=== PATIENT | male | born 1935 | race Caucasian/White ===

== ENCOUNTER 2017-08-15 09:17 | Emergency (ER) | payer MEDICARE ==
[2017-08-15 09:51] LABS: #Eosinphils 0.2 thou/uL (0.0-0.7); #Lymphocytes 2.5 thou/uL (1.20-3.40); #Monocytes 0.6 thou/uL (0.11-0.59); #Neutrophils 3.8 thou/uL (1.40-6.50); %Basophils 0.3 % (0.0-1.0); %Eosinophils 3.1 % (0.0-10.0); %Lymphocytes 34.7 % (21.0-51.0); %Monocytes 8.3 % (0.0-10.0); Hematocrit 45.4 % (42.0-52.0); Mean Platelet Volume 7.4 fL (7.4-10.4); Red Blood Cell (RBC) Count 4.88 mill/uL (4.70-6.10); White Blood Cell (WBC) Count 7.1 thou/uL (4.8-10.8)
[2017-08-15 10:14] LABS: ALT (SGPT) 15 U/L (8-55); AST (SGOT) 17 U/L (5-34); Alkaline Phosphatase 72 U/L (40-150); Anion Gap 13 mmol/L (10-20); BUN (Urea Nitrogen) 15 mg/dL (8.4-25.7); Bilirubin, Total 0.6 mg/dL (0.2-1.2); Calc. Creatinine Clearance 0 mL/min (70-130); Calcium 9.7 mg/dL (7.8-10.44); Carbon Dioxide 28 mmol/L (23-31); Chloride 106 mmol/L (98-107); Estimated GFR-MDRD 60; Globulin 2.5 g/dL (2.4-3.5); Protein, Total 6.5 g/dL (5.8-8.1)
[2017-08-15 10:58] LABS: Bilirubin Negative (Negative); Blood, Urine Negative (Negative); Glucose, Urine (Dipstick) Negative (Negative); Ketone, Urine Negative (Negative); Nitrite Negative (Negative); Protein, Urine (Dipstick) Negative (Neg-Trace); Urobilinogen 0.2 mg/dL (0.2-1.0)
== END 2017-08-15 10:35 | disposition home or self-care (01) ==
LOC: ERS 09:17
DX: R42 Dizziness and giddiness (principal); E11.9 Type 2 diabetes mellitus without complications; E78.5 Hyperlipidemia, unspecified; Z79.82 Long term (current) use of aspirin; Z79.899 Other long term (current) drug therapy
CPT/HCPCS: 36415; 80053; 81003; 85025; 93005

== ENCOUNTER 2017-09-15 23:45 | Emergency (ER) | payer MEDICARE | END 2017-09-16 01:00 | disposition home or self-care (01) | LOC: ERS 23:45 | DX: I10 Essential (primary) hypertension (principal); G47.30 Sleep apnea, unspecified; E11.9 Type 2 diabetes mellitus without complications; E78.5 Hyperlipidemia, unspecified; Z79.82 Long term (current) use of aspirin; Z79.899 Other long term (current) drug therapy; Z79.4 Long term (current) use of insulin ==

== ENCOUNTER 2019-05-28 15:49 | Outpatient (CLI) | payer MEDICARE ==
--- NOTE | 2019-05-28 16:12 | ULT ---
EXAM: Left lower extremity venous duplex: Deep veins evaluated with color Doppler, spectral analysis, and compression. INDICATIONS: Left thrombophlebitis. FINDINGS: Deep veins interrogated include common femoral vein, femoral vein, popliteal vein, and post erior tibial vein. These veins show normal compression and blood flow. No evidence of DVT. IMPRESSION: Negative Left venous duplex exam.
== END 2019-05-28 15:50 | disposition home or self-care (01) ==
LOC: ULT 15:49
PROVIDERS: ATTEND Internal Medicine
DX: I80.3 Phlebitis and thrombophlebitis of lower extremities, unspecified (principal); R60.0 Localized edema

== ENCOUNTER 2019-07-23 13:47 | Outpatient (CLI) | payer MEDICARE ==
--- NOTE | 2019-07-23 14:21 | RAD ---
EXAM: 7 views of the cervical spine HISTORY: Chronic neck pain for years radiating down his right shoulder COMPARISON: None FINDINGS: AP, lateral, oblique, flexion/extension, and open mouth odontoid views of the cervical spin e shows normal height and alignment of the vertebral bodies and intervertebral discs without fracture or subluxation. Postsurgical changes are seen in the lower cervical spine with the patient t o be status post anterior fusion of C5-C7. Small osteophytes are seen surrounding the intervertebral discs in the upper cervical spine. No prevertebral soft tissue swelling is seen. Alig nment is unchanged with flexion and extension. IMPRESSION: Mild degenerative changes and postsurgical changes of the cervical spine with unchanged a lignment with bending
--- NOTE | 2019-07-23 14:59 | MRI ---
MRI cervical spine noncontrast HISTORY: Neck pain. Bilateral radiculopathy. FINDINGS: Vertebral body heights and alignment are maintained. Cervicothoracic junction is intact. C2-3: Osteophytosis result in moderate stenosis of the left neural foramen. Central canal and right n eural foramen are patent. C3-4: Mild posterior osteophyte/disc complex. Circumferential degenerative changes. Mild stenosis of the central canal. Severe right and moderate left foraminal stenoses. C4-5: Posterior osteophyte/disc complexes mild. Circumferential degenerative changes. Severe stenosis of the central canal without significant compression of the spinal cord. No abnormal signal within the cord. Severe bilateral foraminal stenosis, right greater than left. C6-7: Anterior operative fixation. Central canal is patent. Osteophytosis with mild right and moderat e left foraminal stenoses. C6-7: Anterior operative fixation. Central canal and neural foramina are patent. C7-T1: Mild osteophytosis. Central canal and neural foramina are patent. IMPRESSION: Postoperative and prominent degenerative changes throughout the cervical spine as detaile d above, including bilateral severe foraminal stenoses. Clinical correlation regarding the right C4 and each C5 dermatome is required.
== END 2019-07-23 13:48 | disposition home or self-care (01) ==
LOC: SCSMRI 13:47
PROVIDERS: ATTEND Anesthesiology Pain Medicine
DX: M48.02 Spinal stenosis, cervical region (principal); M47.812 Spondylosis without myelopathy or radiculopathy, cervical region; Z98.890 Other specified postprocedural states
CPT/HCPCS: 72052; 72141

== ENCOUNTER 2019-10-08 14:20 | Outpatient (CLI) | payer MEDICARE ==
--- NOTE | 2019-10-08 15:23 | ULT ---
EXAM: Soft tissue ultrasound of the right leg COMPARISON: None HISTORY: 2 areas of focal edema in the right leg near the ankle TECHNIQUE: Multiplanar grayscale images were obtained in a targeted ultrasound of the areas of focal swelling. FINDINGS: Edema is seen at areas of swelling without focal mass or fluid collection. IMPRESSION: No focal mass or fluid collection. Focal edema is seen at the areas of swelling.
--- NOTE | 2019-10-08 15:32 | ULT ---
VENOUS DOPPLER ULTRASOUND RIGHT LOWER EXTREMITY: 10/08/19 HISTORY: Right leg pain. TECHNIQUE: Crump scale ultrasound with color flow and spectral Doppler imaging of the deep venous system of the r ight lower extremity is performed. FINDINGS: There is good flow compression and augmentation noted in the right common femoral, femoral, deep femo ral, popliteal, posterior tibial and greater saphenous veins. IMPRESSION: No evidence of DVT in the right lower extremity. POS: OFF
== END 2019-10-08 14:21 | disposition home or self-care (01) ==
LOC: ULT 14:20
PROVIDERS: ATTEND Internal Medicine
DX: I80.8 Phlebitis and thrombophlebitis of other sites (principal); D17.9 Benign lipomatous neoplasm, unspecified; M79.89 Other specified soft tissue disorders; R60.0 Localized edema
CPT/HCPCS: 76999

== ENCOUNTER 2019-12-31 09:21 | Outpatient (CLI) | payer MEDICARE ==
--- NOTE | 2019-12-31 10:48 | CT ---
CT CERVICAL SPINE WITHOUT CONTRAST: HISTORY: Previous cervical fusion. Radiculopathy. COMPARISON: Post myelogram cervical spine CT 05/11/2009. FINDINGS: No craniocervical dissociation. Appropriate alignment of the lateral masses of C1 and C2. Intact odon toid process. Appropriate alignment of the facets. Stable fusion changes with transvertebral body screw at C5, C6 a nd C7. Associated anterior fusion plate. No perihardware lucency. C5-C6 and C6-C7 disc prosthesis. Soft tissue neck structures: No mass, lymphadenopathy or hematoma. No prevertebral soft tissue swelli ng. Upper mediastinum and lung apices: No acute abnormality. Central spinal canal: Limited evaluation of the contents of the central spinal canal and neural foramina due to technique. C2-C3: No significant central canal stenosis. Mild bilateral neural foraminal narrowing due to uncove rtebral hypertrophy. C3-C4: No significant central canal stenosis. Mild bilateral neural foraminal narrowing due to uncove rtebral hypertrophy. C4-C5: Broad-based disc-osteophyte complex. Moderate central canal stenosis. Mild bilateral neural fo raminal narrowing due to uncovertebral hypertrophy. C5-C6: Broad-based osteophyte ridge. Mild central canal stenosis. Moderate right and moderate to sofia re left neural foraminal narrowing due to uncovertebral hypertrophy. C6-C7: No significant central canal stenosis or significant neural foraminal narrowing. C7-T1: No significant central canal stenosis. Patent neural foramina. Vertebral bodies: Cervical spine vertebral body height is maintained. No fracture. IMPRESSION: 1. Uncomplicated cervical fusion from C5 through C7. 2. Degenerative changes of the cervical spine as described above. Multilevel significant neural miguelito inal narrowing as described above. Transcribed Date/Time: 12/31/2019 11:04 AM
== END 2019-12-31 09:22 | disposition home or self-care (01) ==
LOC: TBSIIMAG 09:21
PROVIDERS: ATTEND Surgery
DX: M48.02 Spinal stenosis, cervical region (principal); M50.10 Cervical disc disorder with radiculopathy, unspecified cervical region; M47.22 Other spondylosis with radiculopathy, cervical region; Z98.1 Arthrodesis status
CPT/HCPCS: 72125

== ENCOUNTER 2020-01-31 14:57 | Emergency (ER) | payer MEDICARE ==
[2020-01-31 16:12] LABS: #Eosinphils 0.1 thou/uL (0.0-0.7); #Lymphocytes 1.8 thou/uL (1.20-3.40); #Monocytes 0.7 thou/uL (0.11-0.59); #Neutrophils 5.4 thou/uL (1.40-6.50); %Basophils 0.5 % (0.0-1.0); %Eosinophils 0.9 % (0.0-10.0); %Lymphocytes 22.7 % (21.0-51.0); %Monocytes 9.1 % (0.0-10.0); %Neutrophils 66.8 % (42.0-75.0); Mean Corpuscular HGB CONC 33.4 g/dL (32.0-36.0); Mean Corpuscular Hemoglobin 31.1 pg (27.0-31.0); Mean Corpuscular Volume 93.1 fL (78.0-98.0); Mean Platelet Volume 7.7 fL (7.4-10.4); Platelet Count 268 thou/uL (130-400); RBC Distribution Width 11.9 % (11.5-14.5); Red Blood Cell (RBC) Count 4.49 mill/uL (4.70-6.10); White Blood Cell (WBC) Count 8.1 thou/uL (4.8-10.8)
[2020-01-31] MEDS ORDERED: Acetaminophen 500 MG TAB ONE (16:24)
--- NOTE | 2020-01-31 16:27 | CT ---
HEAD CT WITHOUT CONTRAST: 01/31/20 HISTORY: Hypertension with headaches. TECHNIQUE: Axial CT imaging at 5 mm intervals from vertex through skull base without contrast. FINDINGS: The visualized paranasal sinuses and mastoid air cells are well aerated. No displaced calvarial fract ure. No intracranial hemorrhage, midline shift, mass effect or ventricular enlargement. IMPRESSION: No acute findings. POS: [facility]
[2020-01-31 16:33] LABS: ALT (SGPT) 12 U/L (8-55); AST (SGOT) 13 U/L (5-34); Albumin 3.8 g/dL (3.4-4.8); Alkaline Phosphatase 63 U/L (40-110); Anion Gap 12 mmol/L (10-20); BUN (Urea Nitrogen) 18 mg/dL (8.4-25.7); Bilirubin, Total 0.5 mg/dL (0.2-1.2); Calc. Creatinine Clearance 0 mL/min (70-130); Calcium 8.7 mg/dL (7.8-10.44); Carbon Dioxide 31 mmol/L (23-31); Chloride 99 mmol/L (98-107); Estimated GFR-MDRD 53; Globulin 2.3 g/dL (2.4-3.5); Glucose 275 mg/dL (83-110); Potassium 3.3 mmol/L (3.5-5.1); Protein, Total 6.1 g/dL (5.8-8.1); Sodium 139 mmol/L (136-145)
[2020-01-31 16:37] LABS: Troponin I Less than 0.010 ng/mL (< 0.028)
== END 2020-01-31 17:35 | disposition home or self-care (01) ==
LOC: ERS 14:57
DX: I10 Essential (primary) hypertension (principal); R51 Headache; E11.9 Type 2 diabetes mellitus without complications; E78.5 Hyperlipidemia, unspecified; E78.00 Pure hypercholesterolemia, unspecified; Q60.0 Renal agenesis, unilateral; G47.30 Sleep apnea, unspecified; I45.10 Unspecified right bundle-branch block; R00.1 Bradycardia, unspecified; Z79.899 Other long term (current) drug therapy; Z79.4 Long term (current) use of insulin
CPT/HCPCS: 70450; 80053; 84484; 85025; 93005; 94760

== ENCOUNTER 2020-02-05 20:26 | Emergency (ER) | payer MEDICARE ==
[2020-02-05] MEDS ORDERED: cloNIDine 0.1 MG TAB ONE (21:40)
[2020-02-05] MEDS ORDERED: diphenhydrAMINE 50 MG/ML VIAL ONE (23:16)
[2020-02-05] MEDS ORDERED: Ketorolac Tromethamine 30 MG/ML VIAL ONE (23:16)
[2020-02-05] MEDS ORDERED: Metoclopramide HCl 10 MG/2 ML VIAL ONE (23:16)
== END 2020-02-06 00:50 | disposition home or self-care (01) ==
LOC: ERS 20:26
DX: R51 Headache (principal); I10 Essential (primary) hypertension; G47.30 Sleep apnea, unspecified; E11.9 Type 2 diabetes mellitus without complications; E78.5 Hyperlipidemia, unspecified; E78.00 Pure hypercholesterolemia, unspecified; Z79.899 Other long term (current) drug therapy; Z79.82 Long term (current) use of aspirin; Z79.4 Long term (current) use of insulin
CPT/HCPCS: 96374; 96375; J1200; J1885; J2765

== ENCOUNTER 2020-03-22 08:24 | Outpatient (CLI) | payer MEDICARE ==
--- NOTE | 2020-03-22 09:27 | CT ---
EXAM: CT angiogram abdomen with IV contrast and 3-D reconstruction PROVIDED CLINICAL HISTORY: Uncontrolled hypertension since December 2019. COMPARISON: 01/03/2017 and 12/31/2014 FINDINGS: There is a pleural-based nodular density anterior aspect right middle lobe measuring 12 mm x 6 mm. Th is was also seen on the prior studies in 2015 at 2017 but is slightly larger in size and previously measured 9 mm x 5 mm. There is also a stable pleural-based nodular density left lung base measuring 1 0 mm unchanged in size compared to study in 2014. These pleural-based nodular densities have been present since a study in 2006. Minimal bibasilar atelectasis is present. A few small subcentimeter hypodense lesions are again seen in the left hepatic lobe with a larger roger roximately 1 cm hypodense lesion in the posterior aspect lateral segment left hepatic lobe which is stable in size. Given stability since study in 2014, findings are most likely related to hepatic cyst s. Calcified granuloma is seen in the left hepatic lobe. The spleen and pancreas demonstrate a normal CT appearance. There is an increased density lesion in the left adrenal gland measuring 7 mm. This was also likely p resent on the study in 2016 but does appear slightly larger in size on today's exam. There is also a smaller subcentimeter increased density lesion involving the medial limb of the right adrenal gland . These lesions are difficult to further characterize due to very small size. 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 There is an area of slight stranding which appears to represent a fat density lesion involving the posterior aspect of left kidney which is fused to the inferior pole righ t kidney which measures approximately 1.7 cm and does have fat density centrally. This has the appearance of a small angiomyolipoma. No hydronephrosis or renal calculus is seen. Atherosclerotic vascular calcifications and irregular plaque is seen within the abdominal aorta and i nvolving the visualized common iliac arteries. Celiac and superior mesenteric arteries are patent. Origin of the MAI is not adequately assessed due to dense vascular calcifications in this region. The origin of the right renal artery is in normal position and does appear patent. 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 The second renal artery is seen arising from the most proximal aspect of the right common iliac artery near the bifurcation. The origin of this renal artery is not well assessed due to dense vascular calcifications in the right common iliac artery at this level. Small hiatal hernia is present. Loops of small bowel are normal in caliber. Moderate amount retained fecal material seen in the visualized colon. Degenerative changes are seen in the spine IMPRESSION: 1. Evidence of crossed fused renal ectopia. Right renal artery is patent. 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 However, there is a second enzo l artery arising from the most proximal right common iliac artery, but the origin of this renal artery is not well assessed due to dense vascular calcifications. 2. Nonspecific hyperdense subcentimeter lesions in each adrenal gland more prominent on the left whic h were present on prior studies but less conspicuous on the prior exams. Follow-up evaluation in 6 months is recommended. 3. Stable hypodense left hepatic lobe lesions likely related to cysts given stability over this perio d of time. 4. Stable pleural-based nodular density left lung base with slight interval enlargement of pleural-ba sed nodular density at the right lung base; however, these pleural-based nodular densities have been present since study in 2006.
[2020-03-22] MEDS ORDERED: Iopamidol 370 76% 100 ML VIAL ONE (11:22)
== END 2020-03-22 08:25 | disposition home or self-care (01) ==
LOC: BICCT 08:24
PROVIDERS: ATTEND Internal Medicine Cardiovascular Disease
DX: I10 Essential (primary) hypertension (principal); I70.1 Atherosclerosis of renal artery; K76.9 Liver disease, unspecified; Q63.2 Ectopic kidney; J98.4 Other disorders of lung
CPT/HCPCS: 74175; Q9967

== ENCOUNTER 2020-11-29 13:56 | Outpatient (CLI) | payer MEDICARE ==
[~2020-11-29 13:56] MED LIST: Iopamidol-370 76% 500 ML 1 ML ONE
== END 2020-11-29 13:57 | disposition home or self-care (01) ==
LOC: BICCT 13:56
PROVIDERS: ATTEND Internal Medicine
DX: K76.89 Other specified diseases of liver (principal); E27.8 Other specified disorders of adrenal gland
CPT/HCPCS: 74170; 82565; Q9967

== ENCOUNTER 2021-01-14 19:37 | Observation (INO) | payer MEDICARE ==
[2021-01-14 20:03] LABS: #Basophils 0.1 thou/uL (0.0-0.2); #Eosinphils 0.1 thou/uL (0.0-0.7); #Lymphocytes 2.5 thou/uL (1.20-3.40); #Monocytes 0.8 thou/uL (0.11-0.59); #Neutrophils 3.4 thou/uL (1.40-6.50); %Basophils 0.9 % (0.0-1.0); %Lymphocytes 36.2 % (21.0-51.0); %Monocytes 11.4 % (0.0-10.0); %Neutrophils 49.5 % (42.0-75.0); Hemoglobin 14.4 g/dL (14.0-18.0); Mean Corpuscular HGB CONC 33.5 g/dL (32.0-36.0); Mean Corpuscular Hemoglobin 31.3 pg (27.0-31.0); Mean Corpuscular Volume 93.6 fL (78.0-98.0); Mean Platelet Volume 7.6 fL (7.4-10.4); Platelet Count 316 thou/uL (130-400); RBC Distribution Width 11.8 % (11.5-14.5); Red Blood Cell (RBC) Count 4.58 mill/uL (4.70-6.10); White Blood Cell (WBC) Count 6.9 thou/uL (4.8-10.8)
[2021-01-14 20:25] LABS: ALT (SGPT) 13 U/L (8-55); AST (SGOT) 21 U/L (5-34); Alkaline Phosphatase 72 U/L (40-110); Anion Gap 13 mmol/L (10-20); BUN (Urea Nitrogen) 23 mg/dL (8.4-25.7); Bilirubin, Total 0.4 mg/dL (0.2-1.2); Calc. Creatinine Clearance 0 mL/min (70-130); Calcium 9.4 mg/dL (7.8-10.44); Carbon Dioxide 27 mmol/L (23-31); Chloride 103 mmol/L (98-107); Globulin 2.6 g/dL (2.4-3.5); Glucose 139 mg/dL (83-110); Potassium 3.9 mmol/L (3.5-5.1); Protein, Total 6.6 g/dL (5.8-8.1); Sodium 139 mmol/L (136-145)
[2021-01-14 22:13] LABS: Bilirubin Negative (Negative); Blood, Urine Negative (Negative); Clarity Clear (Clear); Glucose, Urine (Dipstick) 500 mg/dL (Negative); Ketone, Urine Negative (Negative); Leukocyte Negative Leu/uL (Negative); Nitrite Negative (Negative); Protein, Urine (Dipstick) Negative (Neg-Trace); Specific Gravity, Urine 1.004 (1.002-1.036); Urobilinogen Normal mg/dL (Less than 2)
[2021-01-14] MEDS ORDERED: Aspirin 325 MG TAB ONE (23:20)
[2021-01-14] MEDS ORDERED: Labetalol HCl 100 MG/20 ML VIAL ONE (23:20)
[2021-01-15] MEDS ORDERED: Ondansetron ODT 4 MG TAB PO PRN (01:03)
[2021-01-15] MEDS ORDERED: HumaLOG 300 UNITS/3 ML VIAL SC PRN (01:03)
[2021-01-15] MEDS ORDERED: Ondansetron PF 4 MG/2 ML Vial IVP PRN (01:03)
[2021-01-15] MEDS ORDERED: Dextrose 50% Abboject 50 ML SYRINGE SLOW IVP PRN (01:03)
[2021-01-15] MEDS ORDERED: Acetaminophen 325 MG TAB PO PRN (01:03)
[2021-01-15] MEDS ORDERED: Dextrose 5% in Water 1,000 ML IV PRN (01:03)
[2021-01-15] MEDS ORDERED: Meclizine HCl 12.5 MG TAB PO PRN (01:06)
[2021-01-15] MEDS ORDERED: Labetalol HCl 100 MG/20 ML VIAL SLOW IVP PRN (01:07)
[2021-01-15] MEDS ORDERED: hydrALAZINE 20 MG/ML VIAL SLOW IVP PRN (01:07)
[2021-01-15 01:19] LABS: Troponin I Less than 0.010 ng/mL (< 0.028)
[2021-01-15 03:10] LABS: SARS-CoV-2 NAA Rapid Test Not Detected (NotDetected)
[2021-01-15 03:11] LABS: #Eosinphils 0.1 thou/uL (0.0-0.7); #Lymphocytes 2.4 thou/uL (1.20-3.40); #Monocytes 0.8 thou/uL (0.11-0.59); #Neutrophils 4.3 thou/uL (1.40-6.50); %Basophils 0.5 % (0.0-1.0); %Eosinophils 1.7 % (0.0-10.0); %Lymphocytes 31.1 % (21.0-51.0); %Neutrophils 56.7 % (42.0-75.0); Hemoglobin 13.7 g/dL (14.0-18.0); Mean Corpuscular HGB CONC 33.3 g/dL (32.0-36.0); Mean Corpuscular Hemoglobin 30.9 pg (27.0-31.0); Mean Corpuscular Volume 92.8 fL (78.0-98.0); Mean Platelet Volume 7.6 fL (7.4-10.4); Platelet Count 279 thou/uL (130-400); RBC Distribution Width 11.9 % (11.5-14.5); Red Blood Cell (RBC) Count 4.43 mill/uL (4.70-6.10); White Blood Cell (WBC) Count 7.6 thou/uL (4.8-10.8)
[2021-01-15] MEDS: Sodium Chloride 0.9% 1,000 ML IV SCH ×2 (03:13→14:42)
[2021-01-15 03:32] LABS: Troponin I Less than 0.010 ng/mL (< 0.028)
[2021-01-15 03:33] LABS: Anion Gap 13 mmol/L (10-20); BUN (Urea Nitrogen) 21 mg/dL (8.4-25.7); Calc. Creatinine Clearance 0 mL/min (70-130); Calcium 9.2 mg/dL (7.8-10.44); Carbon Dioxide 26 mmol/L (23-31); Cardiac Risk 2.9 (Less than 4.5); Chloride 106 mmol/L (98-107); Cholesterol 114 mg/dl (< 200 Desired); Glucose 257 mg/dL (83-110); HDL Cholesterol 39 mg/dL (>60 Neg Risk); LDL Cholesterol, Calculated 57 mg/dL; Potassium 3.7 mmol/L (3.5-5.1); Sodium 141 mmol/L (136-145); Triglycerides 88 mg/dL (Less than 150)
[2021-01-15] MEDS ORDERED: Enoxaparin Sodium 40 MG/0.4 ML SYRINGE ONE (08:28)
[2021-01-15] MEDS ORDERED: Aspirin Chewable 81 MG TAB ONE ×2 (08:28→09:38)
[2021-01-15] MEDS ORDERED: Aspirin 81 mg Enteric Coated Tablet PO SCH ×2 (09:00→21:00)
[2021-01-15] MEDS: Enoxaparin Sodium 40 MG/0.4 ML SYRINGE SC SCH (09:37)
[2021-01-15 15:55] VITALS: BMI 30.2
[2021-01-15] MEDS ORDERED: cloNIDine 0.1 MG TAB PO PRN ×2 (17:08→19:10)
[2021-01-15] MEDS ORDERED: ALUMINUM HYDROX PO PRN (17:17)
[2021-01-15] MEDS ORDERED: MAG CARB PO PRN (17:17)
[2021-01-15] MEDS ORDERED: ALGIN PO PRN (17:17)
[2021-01-15] MEDS: Potassium Chloride 10 MEQ TAB PO SCH (17:39)
[2021-01-15] MEDS ORDERED: NIFEdipine XL 60 MG TAB PO SCH (18:00)
[2021-01-15] MEDS: Lubiprostone 24 MCG CAP PO SCH (20:36)
[2021-01-15] MEDS: hydrALAZINE 25 MG TAB PO SCH (20:37)
[2021-01-15] MEDS: Carvedilol 3.125 MG TAB PO SCH (20:37)
[2021-01-15] MEDS ORDERED: Ezetimibe 10 MG TAB PO SCH (21:00)
[2021-01-15] MEDS ORDERED: Atorvastatin Calcium 20 MG TAB PO SCH (21:00)
[2021-01-15] MEDS ORDERED: Losartan 25 MG TAB PO SCH (21:00)
[2021-01-15] MEDS ORDERED: Lantus 1000 UNITS/10 ML VIAL SC SCH (21:00)
[2021-01-16] MEDS: Sodium Chloride 0.9% 1,000 ML IV SCH (06:31)
[2021-01-16] MEDS ORDERED: Glimepiride 4 MG TAB PO SCH (08:00)
[2021-01-16 08:07] VITALS: TEMP 97.8
[2021-01-16] MEDS ORDERED: Empagliflozin 10 MG TAB PO SCH (09:00)
[2021-01-16] MEDS ORDERED: Clopidogrel Bisulfate 75 MG TAB PO SCH (09:00)
[2021-01-16] MEDS ORDERED: Finasteride 5 MG TAB PO SCH (09:00)
[2021-01-16] MEDS ORDERED: Polyethylene Glycol 3350 17 GM Packet PO SCH (09:00)
[2021-01-16] MEDS ORDERED: Cholecalciferol 1,000 UNITS (25 MCG) TAB PO SCH (09:00)
[2021-01-16] MEDS ORDERED: Tamsulosin HCl 0.4 MG CAP PO SCH (09:00)
[2021-01-16] MEDS: Enoxaparin Sodium 40 MG/0.4 ML SYRINGE SC SCH (09:36)
[2021-01-16] MEDS: Lubiprostone 24 MCG CAP PO SCH (09:36)
[2021-01-16] MEDS: Carvedilol 3.125 MG TAB PO SCH (09:37)
[2021-01-16] MEDS: hydrALAZINE 25 MG TAB PO SCH (09:37)
[2021-01-16] MEDS ORDERED: NIFEdipine XL 60 MG TAB PO SCH (10:58)
[2021-01-16] MEDS ORDERED: Hydrochlorothiazide 25 MG TAB PO SCH (12:00)
[2021-01-16] MEDS: Potassium Chloride 10 MEQ TAB PO SCH (12:20)
[2021-01-16 12:22] VITALS: BP 142/76
== END 2021-01-16 12:43 | disposition home or self-care (01) ==
LOC: ERS 19:37 → ERHOLD 23:49 → 2SE 01-15 14:31
PROVIDERS: ADMIT Student in an Organized Health Care Education/Training Program; ATTEND Internal Medicine
DX: R42 Dizziness and giddiness (principal); I10 Essential (primary) hypertension; E78.5 Hyperlipidemia, unspecified; E11.9 Type 2 diabetes mellitus without complications; Q63.1 Lobulated, fused and horseshoe kidney; N17.9 Acute kidney failure, unspecified; I08.3 Combined rheumatic disorders of mitral, aortic and tricuspid valves; G47.30 Sleep apnea, unspecified; Z79.4 Long term (current) use of insulin; Z79.82 Long term (current) use of aspirin; Z79.899 Other long term (current) drug therapy; Z88.0 Allergy status to penicillin; Z91.011 Allergy to milk products; Z90.79 Acquired absence of other genital organ(s); Z98.1 Arthrodesis status; Z20.822 Contact with and (suspected) exposure to COVID-19
CPT/HCPCS: 70450; 70551; 71045; 80048; 80053; 80061; 81003; 82962 ×2; 83735; 84484 ×3; 85025 ×2; 93005; 93306; 93880; 96372; 96374; 96375; 97139 ×5; 99285; G0378 ×3; U0002; 36415; 36416; J0360; J1650; J1815

== ENCOUNTER 2022-05-02 14:03 | Outpatient (CLI) | payer MEDICARE | END 2022-05-02 14:04 | disposition home or self-care (01) | LOC: BICRAD 14:03 | PROVIDERS: ATTEND Internal Medicine | DX: R05.9 Cough, unspecified (principal); S81.001D Unspecified open wound, right knee, subsequent encounter | CPT/HCPCS: 71046; 99212; G0463 ==

== ENCOUNTER 2022-05-29 09:34 | Outpatient (CLI) | payer MEDICARE | END 2022-05-29 09:35 | disposition home or self-care (01) | LOC: BICMRI 09:34 → MRI 09:35 | PROVIDERS: ATTEND Anesthesiology Pain Medicine | DX: M50.11 Cervical disc disorder with radiculopathy, high cervical region (principal); M48.02 Spinal stenosis, cervical region; M50.121 Cervical disc disorder at C4-C5 level with radiculopathy; M25.78 Osteophyte, vertebrae; M47.22 Other spondylosis with radiculopathy, cervical region; M50.33 Other cervical disc degeneration, cervicothoracic region; M47.813 Spondylosis without myelopathy or radiculopathy, cervicothoracic region; D18.09 Hemangioma of other sites; S43.432A Superior glenoid labrum lesion of left shoulder, initial encounter; M75.101 Unspecified rotator cuff tear or rupture of right shoulder, not specified as traumatic; M25.411 Effusion, right shoulder; Z98.1 Arthrodesis status | CPT/HCPCS: 72141 ==

== ENCOUNTER 2024-01-31 09:15 | Outpatient (CLI) | payer MEDICARE ==
[2024-01-31 10:28] LABS: #Basophils 0.08 10x3/uL (0.0-0.2); #Eosinphils 0.14 10x3/uL (0.0-0.5); #Monocytes 0.76 10x3/uL (0.0-1.1); #Neutrophils 5.87 10x3/uL (1.5-8.4); %Basophils 0.9 % (0.0-2.0); %Eosinophils 1.6 % (0.0-6.0); %Lymphocytes 21.2 % (18.0-47.0); %Monocytes 8.7 % (0.0-10.0); %Neutrophils 67.4 % (40.0-75.0); Hematocrit 42.3 % (38.8-50.0); Hemoglobin 14.5 g/dL (13.5-17.5); Mean Corpuscular HGB CONC 34.3 g/dL (32.0-36.0); Mean Corpuscular Hemoglobin 31.5 pg (27.0-33.0); Mean Platelet Volume 9.9 fL (7.4-10.4); Platelet Count 319 10x3/uL (150-450); RBC Distribution Width 13.3 % (11.5-14.5); White Blood Cell (WBC) Count 8.7 10x3/uL (3.5-10.5)
[2024-01-31 10:42] LABS: Anion Gap 11 mmol/L (10-20); BUN (Urea Nitrogen) 16 mg/dL (8.4-25.7); Calc. Creatinine Clearance 0 mL/min (70-130); Calcium 9.4 mg/dL (7.8-10.44); Carbon Dioxide 31 mmol/L (23-31); Chloride 103 mmol/L (98-107); Estimated GFR 68; Glucose 224 mg/dL (83-110); Potassium 3.4 mmol/L (3.5-5.1); Sodium 142 mmol/L (136-145)
== END 2024-01-31 09:16 | disposition home or self-care (01) ==
LOC: LABBT 09:15
PROVIDERS: ATTEND Surgery
DX: Z01.818 Encounter for other preprocedural examination (principal); K40.90 Unilateral inguinal hernia, without obstruction or gangrene, not specified as recurrent
CPT/HCPCS: 80048; 85025; 93005; 93010

== ENCOUNTER 2024-02-05 08:36 | Day surgery (SDC) | payer MEDICARE ==
[2024-01-31 10:06] VITALS: BMI 27.9
[2024-02-05] MEDS ORDERED: PROPOFOL 20 ML ONE (10:16)
[2024-02-05] MEDS ORDERED: Lidocaine 1% PF 5 ML VIAL ONE ×2 (10:16→12:27)
[2024-02-05] MEDS ORDERED: Bupivacaine 0.25% HCL 30 ML VIAL ONE (12:09)
[2024-02-05] MEDS ORDERED: Lidocaine 2% PF 5 ML VIAL ONE (12:09)
[2024-02-05] MEDS ORDERED: EPINEPHrine 1 MG/ML VIAL ONE (12:09)
[2024-02-05] MEDS ORDERED: CEFAZOLIN 2 GM VIAL ONE (12:18)
[2024-02-05] MEDS ORDERED: Sodium Chloride 0.9% 100 ML ONE (12:18)
[2024-02-05] MEDS ORDERED: Dexamethasone 4 mg/ml Vial ONE (12:27)
[2024-02-05] MEDS ORDERED: Ondansetron PF 4 MG/2 ML Vial ONE (12:27)
[2024-02-05] MEDS ORDERED: fentaNYL PF 100 MCG/2 ML SYRINGE ONE (12:27)
[2024-02-05] MEDS ORDERED: PROPOFOL 40 ML ONE (12:27)
[2024-02-05] MEDS ORDERED: PHENYLEPHRINE-NS 100 MCG/ML 10 ML SYRINGE ONE ×2 (12:37→14:07)
[2024-02-05] MEDS ORDERED: Glycopyrrolate 0.2 MG/ML 5 ML SYRINGE ONE (12:38)
== END 2024-02-05 14:27 | disposition home or self-care (01) ==
LOC: SDC 08:36
PROVIDERS: ATTEND Surgery
PROC: 0DTP0ZZ Resection of Rectum, Open Approach (ICD-10-PCS; principal; 2024-02-05)
PROC: 0DTN0ZZ Resection of Sigmoid Colon, Open Approach (ICD-10-PCS; 2024-02-05)
PROC: 0DTQ0ZZ Resection of Anus, Open Approach (ICD-10-PCS; 2024-02-05)
DX: D17.5 Benign lipomatous neoplasm of intra-abdominal organs (principal); K40.90 Unilateral inguinal hernia, without obstruction or gangrene, not specified as recurrent; Z79.899 Other long term (current) drug therapy; Z88.0 Allergy status to penicillin; Z88.1 Allergy status to other antibiotic agents; Z88.8 Allergy status to other drugs, medicaments and biological substances; Z88.2 Allergy status to sulfonamides
CPT/HCPCS: 22902; 82962; J0171; J0665; J1100; J2405; J2704; J3490; 36416; 88304; J2001

== ENCOUNTER 2025-05-26 10:02 | Outpatient (CLI) | payer MEDICARE ==
[2025-05-26 11:22] LABS: #Basophils 0.06 10x3/uL (0.0-0.2); #Eosinophils 0.26 10x3/uL (0.0-0.7); #Monocytes 0.64 10x3/uL (0.11-0.59); #Neutrophils 4.80 10x3/uL (1.40-6.50); %Basophils 0.8 % (0.0-1.0); %Eosinophils 3.4 % (0.0-10.0); %Lymphocytes 24.8 % (21.0-51.0); %Monocytes 8.3 % (0.0-10.0); %Neutrophils 62.4 % (42.0-75.0); Hematocrit 44.8 % (42.0-52.0); Hemoglobin 15.0 g/dL (14.0-18.0); Mean Corpuscular Hemoglobin 30.6 pg (27.0-31.0); Mean Corpuscular Volume 91.4 fL (78.0-98.0); Platelet Count 316 10x3/uL (130-400); Red Blood Cell (RBC) Count 4.90 mill/uL (4.70-6.10); White Blood Cell (WBC) Count 7.69 10x3/uL (4.8-10.8)
[2025-05-26 11:40] LABS: Anion Gap 14 mmol/L (10-20); BUN (Urea Nitrogen) 14 mg/dL (8.4-25.7); Calc. Creatinine Clearance 0 mL/min (70-130); Calcium 9.3 mg/dL (7.8-10.44); Carbon Dioxide 28 mmol/L (23-31); Chloride 104 mmol/L (98-107); Glucose 186 mg/dL (83-110); Potassium 3.5 mmol/L (3.5-5.1); Sodium 142 mmol/L (136-145)
[2025-05-26 11:43] LABS: INR-International Normal Ratio 1.1; PTT 30.5 sec (22.9-36.1); Prothrombin Time 14.1 sec (12.0-14.7)
== END 2025-05-26 10:03 | disposition home or self-care (01) ==
LOC: LABBT 10:02
PROVIDERS: ATTEND Urology
DX: Z01.812 Encounter for preprocedural laboratory examination (principal); R33.8 Other retention of urine
CPT/HCPCS: 80048; 85025; 85610; 85730; 87086